=== PATIENT | female | born 1995 | race Caucasian/White ===

== ENCOUNTER 2021-07-03 14:38 | Emergency (ER) | payer OTHER ==
[2021-07-03 17:31] LABS: BASOPHIL 0.2 % (0-2); EOSINOPHIL 3.2 & (0-5); HCT 39.4 % (37.0-47.0); HGB 12.9 g/dl (12.5-16.0); LYMPHOCYTE 17.6 % (15-48); MCH 30.6 pg (25.0-31.0); MCHC 32.7 g/dL (32.0-36.0); MCV 93.6 fL (78.0-100.0); MONOCYTE 5.9 % (0-12); MPV 11.2 fL (6.0-9.5); PLT 216 K/uL (150-400); RBC 4.21 M/uL (4.20-5.40); RDW 12.2 % (11.5-14.0); WBC 16.55 K/uL (4.0-10.5)
[2021-07-03 17:31] LABS: CORONAVIRUS 2019 SARS-COV-2 NEGATIVE (NEGATIVE); INFLUENZA A NAA NEGATIVE (NEGATIVE)
[2021-07-03 17:34] LABS: BUN/CREAT RATIO (CALC) 17.5 RATIO; CREATININE 0.57 mg/dL (0.51-0.95); POTASSIUM 4.2 mmol/L (3.5-5.1)
[2021-07-04 07:33] LABS: HCT 37.6 % (37.0-47.0); HGB 12.3 g/dl (12.5-16.0); MCH 30.8 pg (25.0-31.0); MCHC 32.7 g/dL (32.0-36.0); MCV 94.2 fL (78.0-100.0); MPV 11.2 fL (6.0-9.5); RBC 3.99 M/uL (4.20-5.40); RDW 12.2 % (11.5-14.0); WBC 12.54 K/uL (4.0-10.5)
[2021-07-04 07:46] LABS: BUN/CREAT RATIO (CALC) 12.1 RATIO; CREATININE 0.66 mg/dL (0.51-0.95); POTASSIUM 3.8 mmol/L (3.5-5.1)
== END 2021-07-04 14:01 | disposition other institution (70) ==
LOC: FER 14:38
PROVIDERS: Emergency Medicine; Nurse Practitioner Family
DX: J98.59 Other diseases of mediastinum, not elsewhere classified (principal); K21.9 Gastro-esophageal reflux disease without esophagitis; Z20.822 Contact with and (suspected) exposure to COVID-19; Z79.899 Other long term (current) drug therapy
CPT/HCPCS: 36415; 71045; 71275; 74220; 80048; 84145; 84484; 85025; 85379; 86140; 93005; J0295; J1644; Q9967; U0002